=== PATIENT | female | born 1955 | race Asian ===

== ENCOUNTER → 2016-03-14 | Outpatient (CLI) | payer BC ==
[~2016-03-14] MED LIST: LEVO150T10; LISI-287; METO50TA7
[2016-03-14 08:05] LABS: Potassium 3.9 mmol/L (3.5-5.1)
== END | disposition home or self-care (01) ==
LOC: LAB 06:36
PROVIDERS: ATTEND Internal Medicine
DX: I10 Essential (primary) hypertension (principal); E78.00 Pure hypercholesterolemia, unspecified
CPT/HCPCS: 36415; 80061; 84132; 84439; 84443; 84450; 84460

== ENCOUNTER 2016-10-20 10:00 | Day surgery (SDC) | payer BC ==
[2016-10-16 11:36] LABS: Basophils # (auto) 0 uL; Basophils % (auto) 0.6 % (0.0-2.0); CONDITION Y; Eosinophils # (auto) 0.1 uL; Eosinophils % (auto) 2.2 % (0.0-7.0); Hematocrit 46.3 % (36.0-46.0); Hemoglobin 15.8 g/dL (12.2-16.2); Lymphocytes # (auto) 1.7 uL; Lymphocytes % (auto) 34.6 % (10.0-50.0); Mean Corpuscular Hemoglobin 31.1 pg (28.0-32.0); Mean Corpuscular Hgb Conc. 34.2 g/dL (32.0-36.0); Mean Corpuscular Volume 91.1 fL (80.0-100.0); Mean Platelet Volume 7.7 fL (7.4-10.4); Monocytes # (auto) 0.3 uL; Monocytes % (auto) 5.4 % (0.0-12.0); Neutrophils # (auto) 2.7 uL; Neutrophils % (auto) 57.2 % (37.0-80.0); Platelet Count (auto) 274 10^3/uL (140-450); Red Cell Distribution Width 12.1 % (11.6-16.0); White Blood Cell 4.8 10^3/uL (4.4-10.8)
[2016-10-16 11:59] LABS: INR 0.95 (0.9-1.15); Partial Thromboplastin Time 24.7 sec (22.64-33.71); Prothrombin Time 10.3 sec (9.37-12.3)
[~2016-10-20] VITALS: Ht 157.5 cm; Wt 67.1 kg
[~2016-10-20 10:00] MED LIST changes: +CALC600T57 PO; -LEVO150T10; +LEVO175T31 PO; -LISI-287; -METO50TA7; +METO50TA7 OR; +MULT-195 OR; +VALS1TAB54 PO
[2016-10-20] MEDS ORDERED: SODIUM CHLORIDE LOCK 10 ML ONE (10:26)
[2016-10-20] MEDS ORDERED: diphenhdrAMINE HCL 50 MG/1 ML VL ONE (10:26)
[2016-10-20] MEDS: fentaNYL CITRATE 100 MCG/2 ML VL ONE ×2 (11:29→11:33)
[2016-10-20] MEDS: MIDAZOLAM HCL 5 MG/ML-1ML VIAL ONE ×2 (11:29→11:33)
[2016-10-20 12:34] VITALS: BP 143/95
== END 2016-10-20 12:34 | disposition home or self-care (01) ==
LOC: GI 10:00
PROVIDERS: ATTEND Internal Medicine Gastroenterology
DX: Z12.11 Encounter for screening for malignant neoplasm of colon (principal)
CPT/HCPCS: 36415; 45378; 85025; 85610; 85730; J1200; J2250; J3010; J7030

== ENCOUNTER → 2016-11-04 | Outpatient (CLI) | payer BC ==
[2016-11-04 12:00] LABS: Basophils # (auto) 0 uL; Basophils % (auto) 0.8 % (0.0-2.0); Eosinophils # (auto) 0.1 uL; Eosinophils % (auto) 1.9 % (0.0-7.0); Hematocrit 48.6 % (36.0-46.0); Hemoglobin 16.4 g/dL (12.2-16.2); Lymphocytes # (auto) 1.8 uL; Lymphocytes % (auto) 35.3 % (10.0-50.0); Mean Corpuscular Hemoglobin 30.8 pg (28.0-32.0); Mean Corpuscular Hgb Conc. 33.8 g/dL (32.0-36.0); Mean Corpuscular Volume 91.2 fL (80.0-100.0); Monocytes # (auto) 0.4 uL; Monocytes % (auto) 8.1 % (0.0-12.0); Neutrophils # (auto) 2.7 uL; Neutrophils % (auto) 53.9 % (37.0-80.0); Nucleated Red Blood Cells % 0.1 %; Platelet Count (auto) 284 10^3/uL (140-450); Red Cell Distribution Width 12.8 % (11.6-16.0)
[2016-11-04 12:05] LABS: Urine Bilirubin Negative (Negative); Urine Blood Negative /uL (Negative); Urine Color Yellow (Yellow); Urine Glucose Normal (Normal); Urine Ketone Negative (Negative); Urine Mucus FEW (None Seen); Urine Nitrite Negative (Negative); Urine RBC <1 /hpf (0 - 4); Urine Squamous Epithelial Cell FEW /hpf (<5); Urine Urobilinogen Normal (Negative); Urine pH 5.5 (5.0-8.0)
[2016-11-04 12:18] LABS: Albumin 3.9 g/dL (3.4-5.0); BUN/Creatinine Ratio 15.9; Bilirubin, Total 0.6 mg/dL (0.2-1.0); Calcium 9.4 mg/dL (8.5-10.1); Potassium 3.9 mmol/L (3.5-5.1); Total Protein 8.1 g/dL (6.4-8.2)
== END | disposition home or self-care (01) ==
LOC: LAB 11:50
PROVIDERS: ATTEND Internal Medicine
DX: I10 Essential (primary) hypertension (principal); E78.00 Pure hypercholesterolemia, unspecified
CPT/HCPCS: 36415; 80053; 80061; 81001; 82043; 84439; 84443; 85025; 85652

== ENCOUNTER → 2016-12-02 | Outpatient (CLI) | payer BC ==
[2016-12-02 12:05] LABS: Aspartate Aminotransferase 57 U/L (15-37)
== END | disposition home or self-care (01) ==
LOC: LAB 10:54
PROVIDERS: ATTEND Internal Medicine
DX: K76.0 Fatty (change of) liver, not elsewhere classified (principal); H21.81 Floppy iris syndrome; Z79.899 Other long term (current) drug therapy
CPT/HCPCS: 36415; 83036; 84450; 84460

== ENCOUNTER → 2017-05-05 | Outpatient (CLI) | payer BC ==
[~2017-05-05] MED LIST changes: -VALS1TAB54 PO; +VALS1TAB58 PO
[2017-05-05 08:33] LABS: Alanine Aminotransferase 76 U/L (13-56); LDL Cholesterol 154 mg/dL (< 100)
[2017-05-05 10:22] LABS: INR 0.94 (0.9-1.15); Partial Thromboplastin Time 25.9 sec (22.64-33.71); Prothrombin Time 10.2 sec (9.37-12.3)
== END | disposition home or self-care (01) ==
LOC: LAB 07:02
PROVIDERS: ATTEND Internal Medicine
DX: I10 Essential (primary) hypertension (principal); R73.03 Prediabetes; K76.0 Fatty (change of) liver, not elsewhere classified
CPT/HCPCS: 36415; 83036; 83721; 84439; 84443; 84460; 85610; 85730

== ENCOUNTER → 2017-12-02 | Outpatient (CLI) | payer BC ==
[~2017-12-02] MED LIST changes: +MET5XLT OR; -METO50TA7 OR
[2017-12-02 10:55] LABS: Urine Bacteria NONE SEEN /hpf (None Seen); Urine Blood TRACE /uL (Negative); Urine Mucus FEW (None Seen); Urine Specific Gravity 1.019 (1.001-1.035); Urine WBC 1 /hpf (0 - 5)
[2017-12-02 11:00] LABS: Basophils # (auto) 0.1 uL; Eosinophils # (auto) 0.1 uL; Eosinophils % (auto) 2.1 % (0.0-7.0); Hemoglobin 16.2 g/dL (12.2-16.2); Lymphocytes # (auto) 2.1 uL; Lymphocytes % (auto) 41.9 % (10.0-50.0); Mean Corpuscular Hemoglobin 30.1 pg (28.0-32.0); Mean Corpuscular Hgb Conc. 33.1 g/dL (32.0-36.0); Monocytes # (auto) 0.4 uL; Monocytes % (auto) 7.4 % (0.0-12.0); Neutrophils # (auto) 2.4 uL; Neutrophils % (auto) 47.6 % (37.0-80.0); Nucleated Red Blood Cells % 0.1 %; Platelet Count (auto) 284 10^3/uL (140-450); Red Blood Cells 5.39 10^6/uL (4.0-5.20); Red Cell Distribution Width 12.9 % (11.8-14.3)
[2017-12-02 11:26] LABS: Albumin 3.8 g/dL (3.4-5.0); BUN/Creatinine Ratio 20.3; Bilirubin, Total 0.6 mg/dL (0.2-1.0); CRP High Sensitivity 0.63 mg/dL (< 0.3); Calcium 8.9 mg/dL (8.5-10.1); Potassium 4.1 mmol/L (3.5-5.1)
== END | disposition home or self-care (01) ==
LOC: LAB 10:25
PROVIDERS: ATTEND Internal Medicine
DX: E11.9 Type 2 diabetes mellitus without complications (principal); K76.0 Fatty (change of) liver, not elsewhere classified; H66.90 Otitis media, unspecified, unspecified ear; I10 Essential (primary) hypertension; E03.9 Hypothyroidism, unspecified
CPT/HCPCS: 36415; 80053; 80061; 81001; 82043; 83036; 84439; 84443; 85025; 85652; 86141

== ENCOUNTER → 2018-06-03 | Outpatient (CLI) | payer BC ==
[2018-06-03 12:13] LABS: Alanine Aminotransferase 58 U/L (13-56); Aspartate Aminotransferase 34 U/L (15-37); Cholesterol 216 mg/dL (< 200); HDL Cholesterol 45 mg/dL (40-59); LDL Cholesterol 151 mg/dL (< 100); Triglycerides 306 mg/dL (< 150)
== END | disposition home or self-care (01) ==
LOC: LAB 10:08
PROVIDERS: ATTEND Internal Medicine
DX: K76.0 Fatty (change of) liver, not elsewhere classified (principal); E11.9 Type 2 diabetes mellitus without complications; E78.5 Hyperlipidemia, unspecified
CPT/HCPCS: 36415; 80061; 83036; 84439; 84443; 84450; 84460

== ENCOUNTER → 2018-12-03 | Outpatient (CLI) | payer BC ==
[~2018-12-03] MED LIST changes: -MET5XLT OR; +METO-6 OR
[2018-12-03 09:39] LABS: Urine WBC None Seen /hpf (0 - 5)
[2018-12-03 09:45] LABS: Basophils # (auto) 0.1 uL; Basophils % (auto) 1.2 % (0.0-2.0); Eosinophils # (auto) 0.2 uL; Hematocrit 47.5 % (36.0-46.0); Hemoglobin 16.3 g/dL (12.2-16.2); Lymphocytes # (auto) 1.9 uL; Mean Corpuscular Hemoglobin 31.4 pg (28.0-32.0); Mean Corpuscular Hgb Conc. 34.4 g/dL (32.0-36.0); Mean Corpuscular Volume 91.2 fL (80.0-100.0); Monocytes # (auto) 0.4 uL; Monocytes % (auto) 6.6 % (0.0-12.0); Neutrophils # (auto) 3.1 uL; Neutrophils % (auto) 55.2 % (37.0-80.0); Platelet Count (auto) 307 10^3/uL (140-450); White Blood Cell 5.7 10^3/uL (4.4-10.8)
[2018-12-03 09:50] LABS: Urine Bacteria NONE SEEN /hpf (None Seen); Urine Blood TRACE /uL (Negative); Urine Specific Gravity 1.021 (1.001-1.035)
[2018-12-03 10:08] LABS: Albumin 3.8 g/dL (3.4-5.0); Potassium 4.3 mmol/L (3.5-5.1)
[2018-12-03 10:15] LABS: BUN/Creatinine Ratio 20.3; Bilirubin, Total 0.5 mg/dL (0.2-1.0)
== END | disposition home or self-care (01) ==
LOC: LAB 09:21
PROVIDERS: ATTEND Internal Medicine
DX: E78.00 Pure hypercholesterolemia, unspecified (principal); E03.9 Hypothyroidism, unspecified; I10 Essential (primary) hypertension
CPT/HCPCS: 36415; 80053; 80061; 81001; 82043; 84439; 84443; 85025; 85652

== ENCOUNTER → 2019-01-26 | Outpatient (CLI) | payer BC ==
[2019-01-26 10:13] LABS: Alanine Aminotransferase 62 U/L (13-56); Aspartate Aminotransferase 32 U/L (15-37); Cholesterol 219 mg/dL (< 200); HDL Cholesterol 53 mg/dL (40-59); LDL Cholesterol 144 mg/dL (< 100); Triglycerides 183 mg/dL (< 150)
== END | disposition home or self-care (01) ==
LOC: LAB 09:31
PROVIDERS: ATTEND Internal Medicine
DX: E78.5 Hyperlipidemia, unspecified (principal)
CPT/HCPCS: 36415; 80061; 84450; 84460

== ENCOUNTER → 2019-10-20 | Outpatient (CLI) | payer BC ==
[2019-10-20 07:15] LABS: Basophils # (auto) 0 10 ^3/uL (0-0.2); Basophils % (auto) 0.8 % (0.0-2.0); Eosinophils # (auto) 0.2 10 ^3/uL (0-0.8); Eosinophils % (auto) 2.6 % (0.0-7.0); Hematocrit 46.2 % (36.0-46.0); Hemoglobin 15.4 g/dL (12.2-16.2); Lymphocytes # (auto) 2.3 10 ^3/uL (0.4-5.4); Lymphocytes % (auto) 37.5 % (10.0-50.0); Mean Corpuscular Hemoglobin 30.8 pg (28.0-32.0); Mean Corpuscular Hgb Conc. 33.2 g/dL (32.0-36.0); Mean Corpuscular Volume 92.6 fL (80.0-100.0); Monocytes # (auto) 0.4 10 ^3/uL (0-1.3); Monocytes % (auto) 6.7 % (0.0-12.0); Neutrophils # (auto) 3.3 10 ^3/uL (1.6-8.6); Neutrophils % (auto) 52.4 % (37.0-80.0); Nucleated Red Blood Cells % 0.1 %; Platelet Count (auto) 274 10^3/uL (140-450); Red Blood Cells 4.99 10^6/uL (4.0-5.20); Red Cell Distribution Width 13.5 % (11.8-14.3); White Blood Cell 6.2 10^3/uL (4.4-10.8)
[2019-10-20 07:21] LABS: Urine Bacteria NONE SEEN /hpf (None Seen); Urine Blood Negative /uL (Negative); Urine Hyaline Cast FEW /lpf (0 - 2); Urine Mucus FEW (None Seen); Urine Specific Gravity 1.021 (1.001-1.035); Urine WBC 1 /hpf (0 - 5)
[2019-10-20 07:33] LABS: Albumin 3.9 g/dL (3.4-5.0); Calcium 8.7 mg/dL (8.5-10.1); Potassium 3.9 mmol/L (3.5-5.1)
[2019-10-20 07:37] LABS: Bilirubin, Total 0.8 mg/dL (0.2-1.0); Total Protein 7.8 g/dL (6.4-8.2)
== END | disposition home or self-care (01) ==
LOC: LAB 06:59
PROVIDERS: ATTEND Internal Medicine
DX: I10 Essential (primary) hypertension (principal); E78.00 Pure hypercholesterolemia, unspecified; R73.03 Prediabetes; E03.9 Hypothyroidism, unspecified
CPT/HCPCS: 36415; 80053; 80061; 81001; 84439; 84443; 85025; 85652

== ENCOUNTER → 2019-12-31 | Outpatient (CLI) | payer BC ==
[2019-12-31 14:14] LABS: Albumin 3.8 g/dL (3.4-5.0); BUN/Creatinine Ratio 20.3; Bilirubin, Total 0.7 mg/dL (0.2-1.0); Calcium 9.3 mg/dL (8.5-10.1); Potassium 4.1 mmol/L (3.5-5.1); Total Protein 7.7 g/dL (6.4-8.2)
== END | disposition home or self-care (01) ==
LOC: LAB 09:35
PROVIDERS: ATTEND Internal Medicine
DX: E11.9 Type 2 diabetes mellitus without complications (principal); E78.5 Hyperlipidemia, unspecified
CPT/HCPCS: 36415; 80053; 80061; 83036; 84439; 84443

== ENCOUNTER → 2020-01-11 | Outpatient (CLI) | payer OTHER | END | disposition home or self-care (01) | LOC: LAB 12:35 | PROVIDERS: ATTEND Nurse Practitioner Family | DX: U07.1 COVID-19 (principal) | CPT/HCPCS: C9803; U0003 ==

== ENCOUNTER 2020-01-25 13:11 | Inpatient (IN) | payer BC, OTHER ==
[~2020-01-25] VITALS: Ht 157.5 cm; Wt 71.2 kg
[2020-01-25] MEDS ORDERED: REMDESIVIR PER PHARMACY IV SCH (14:00)
[2020-01-25] MEDS ORDERED: methylPREDNISolone SOD SUCC 125 MG/2 ML VL IV ONE (14:00)
[2020-01-25] MEDS ORDERED: AZITHROMYCIN 500MG/ 250ML 250 ML IV ONE (14:00)
[2020-01-25] MEDS ORDERED: ASCORBIC ACID 500 MG TAB PO ONE (14:00)
[2020-01-25] MEDS ORDERED: ZINC SULFATE 220mg CAP or TAB PO ONE (14:00)
[2020-01-25 15:18] LABS: Alanine Aminotransferase 74 U/L (13-56); Anion Gap 7 (5-15); Blood Urea Nitrogen 12 mg/dL (7-18); CRP High Sensitivity 0.47 mg/dL (< 0.3); Calcium 9.2 mg/dL (8.5-10.1); Carbon Dioxide 28 mmol/L (21-32); Chloride 102 mmol/L (98-107); Glucose 148 mg/dL (74-106); Potassium 4.3 mmol/L (3.5-5.1); Sodium 137 mmol/L (136-145)
[2020-01-25 15:19] LABS: Lactic Acid w/Reflex 2.3 mmol/L (0.4-2.0)
[2020-01-25 15:25] LABS: Alkaline Phosphatase 88 U/L (45-117); Aspartate Aminotransferase 42 U/L (15-37); BUN/Creatinine Ratio 14.3; Bilirubin, Total 0.4 mg/dL (0.2-1.0); GFR African American 88 mL/min; GFR Non-African American 73 mL/min; Total Protein 7.8 g/dL (6.4-8.2)
[2020-01-25 15:30] LABS: Hematocrit 46.7 % (36.0-46.0); Hemoglobin 15.9 g/dL (12.2-16.2); White Blood Cell 5.8 10^3/uL (4.4-10.8)
[2020-01-25 15:32] LABS: Mean Corpuscular Hgb Conc. 34.1 g/dL (32.0-36.0); Mean Corpuscular Volume 90.8 fL (80.0-100.0); Platelet Count (auto) 503 10^3/uL (140-450); Red Blood Cells 5.14 10^6/uL (4.0-5.20); Red Cell Distribution Width 12.8 % (11.8-14.3)
[2020-01-25 15:41] LABS: Basophils % (manual) 0 (0.0-2.0); Blast Cells 0; Eosinophils % (manual) 0 (0-7); Metamyelocytes % 0; Myelocytes % 0; Promyelocytes % 0; Reactive Lymphocytes 0
[2020-01-25 16:31] LABS: Band Neutrophils % (manual) 1; Lymphocytes % (manual) 28 (10.0-50.0); Monocytes % (manual) 9 (0-12)
[2020-01-25] MEDS ORDERED: HYDROcodone-ACET 5/325MG TAB PO PRN (18:00)
[2020-01-25] MEDS ORDERED: ONDANSETRON HCL 4 MG/2 ML VIAL IV PRN (18:00)
[2020-01-25] MEDS ORDERED: ACETAMINOPHEN 500 MG TAB PO PRN (18:00)
[2020-01-25] MEDS ORDERED: MORPHINE SULF INJ 2 MG/ML SYRINGE 1ML IV PRN ×2 (18:00)
[2020-01-25] MEDS ORDERED: NITROGLYCERIN 0.4 MG SL TAB SL PRN (18:00)
[2020-01-25 22:00] VITALS: BP 121/79
[2020-01-25] MEDS ORDERED: BUDESONIDE (INHALATION) 180 MCG IH IN SCH (22:00)
[2020-01-25] MEDS ORDERED: ALBUTEROL SULF HFA 90MCG INH 200DOSE IN SCH (22:00)
[2020-01-25] MEDS: ENOXAPARIN SOD 40 MG/0.4 ML SYRINGE SC SCH (23:26)
[2020-01-25] MEDS: cefTRIAXone 1GM/50ML D5W 50 ML IV SCH (23:27)
[2020-01-26] VITALS (10 sets, daily range): BP systolic 111–141; BP diastolic 71–87
--- NOTE | 2020-01-26 | NUR ---
Telemetry admit from ER MARINA ISLAS admitted to Telemetry unit after SBAR received. Patient oriented to Jennifer Maravilla RN primary RN, unit, room, bed, and unit policies regarding patient care and visiting hours. Patient now on continuous telemetry monitoring, tele box # [id number] and telemetry reading on arrival to unit is SR. Patient placed on bedside oxygen at 2 Lpm/NC, weighed by bedscale and encouraged to call if they need something. All questions and concerns addressed, patient verbalized understanding, will continue to monitor Note: []
[2020-01-26] MEDS ORDERED: LOSA-39 PO (01:06)
[2020-01-26] MEDS ORDERED: ASCO500T11 PO (01:06)
[2020-01-26] MEDS ORDERED: ROSU20TA14 PO (01:06)
[2020-01-26] MEDS ORDERED: ASPI-543 PO (01:06)
--- NOTE | 2020-01-26 02:00 | NUR ---
Covid swab done and sent to lab
[2020-01-26 06:46] LABS: Basophils # (auto) 0 10 ^3/uL (0-0.2); Eosinophils # (auto) 0 10 ^3/uL (0-0.8)
[2020-01-26 06:56] LABS: Hematocrit 44.5 % (36.0-46.0); Hemoglobin 14.8 g/dL (12.2-16.2); Mean Corpuscular Hemoglobin 30.4 pg (28.0-32.0); Mean Corpuscular Hgb Conc. 33.2 g/dL (32.0-36.0); Mean Corpuscular Volume 91.6 fL (80.0-100.0); Platelet Count (auto) 474 10^3/uL (140-450); Red Blood Cells 4.86 10^6/uL (4.0-5.20); White Blood Cell 5.7 10^3/uL (4.4-10.8)
[2020-01-26 07:04] LABS: Basophils % (auto) 0.1 % (0.0-2.0); Lymphocytes # (auto) 1.1 10 ^3/uL (0.4-5.4); Lymphocytes % (auto) 19.3 % (10.0-50.0); Monocytes # (auto) 0.1 10 ^3/uL (0-1.3); Monocytes % (auto) 1.2 % (0.0-12.0); Neutrophils # (auto) 4.5 10 ^3/uL (1.6-8.6); Neutrophils % (auto) 79.4 % (37.0-80.0); Potassium 4.5 mmol/L (3.5-5.1)
[2020-01-26 07:11] LABS: BUN/Creatinine Ratio 16.3; Bilirubin, Total 0.3 mg/dL (0.2-1.0); Calcium 9.1 mg/dL (8.5-10.1); Total Protein 7.8 g/dL (6.4-8.2)
--- NOTE | 2020-01-26 08:00 | NUR ---
Opening Shift Note Assumed care of patient, awake and alert. With some S/S of distress/SOB but no complaints of pain. On O2 at 2lpm/nasal cannula continuously administered. Instructed on POC and to call for assist PRN, will continue to monitor for changes Q1hr and PRN.
[2020-01-26] MEDS: cefTRIAXone 1GM/50ML D5W 50 ML IV SCH (08:54)
[2020-01-26] MEDS: ENOXAPARIN SOD 40 MG/0.4 ML SYRINGE SC SCH ×2 (09:48→22:15)
[2020-01-26] MEDS: DexAMETHasone SOD PHOS 10MG/1ML VIAL INJ IV SCH (09:48)
[2020-01-26] MEDS: FAMOTIDINE 20 MG TAB PO SCH (09:48)
[2020-01-26] MEDS: ZINC SULFATE 220mg CAP or TAB PO SCH (09:49)
[2020-01-26] MEDS: AZITHROMYCIN 500MG/D5WorNS 250ml IV SCH (09:49)
[2020-01-26] MEDS ORDERED: REMDESIVIR 200 MG in NS 210ml LOADING DOSE ADULT IV ONE (17:00)
[2020-01-26] MEDS ORDERED: FUROSEMIDE 20 MG/2 ML VIAL IV ONE (18:45)
--- NOTE | 2020-01-26 19:35 | NUR ---
Opening Shift Note Assumed care of patient, awake and alert. With some S/S of distress/SOB with ambulation. On O2 at 2lpm/nasal cannula continuously administered. Updated on POC and to call for assist PRN. NPO after MN instructed, for CTA of the chest tomorrow, patient verbalized understanding. Full linen changed, bed in lowest and locked position, call light within reach, will continue to monitor for changes Q1hr and PRN.
[2020-01-27 05:00] VITALS: BP 126/79
[2020-01-27 05:53] LABS: Calcium 9.1 mg/dL (8.5-10.1); Potassium 3.9 mmol/L (3.5-5.1)
[2020-01-27 05:55] LABS: BUN/Creatinine Ratio 22.9; Lactic Acid w/Reflex 2.3 mmol/L (0.4-2.0)
[2020-01-27 08:49] VITALS: BP 114/76
[2020-01-27] MEDS: cefTRIAXone 1GM/50ML D5W 50 ML IV SCH (08:54)
[2020-01-27] MEDS: AZITHROMYCIN 500MG/D5WorNS 250ml IV SCH (09:03)
[2020-01-27] MEDS: ENOXAPARIN SOD 40 MG/0.4 ML SYRINGE SC SCH ×2 (09:04→21:28)
[2020-01-27] MEDS: DexAMETHasone SOD PHOS 10MG/1ML VIAL INJ IV SCH (09:04)
[2020-01-27] MEDS: FUROSEMIDE 20 MG/2 ML VIAL IV SCH (09:05)
[2020-01-27] MEDS: FAMOTIDINE 20 MG TAB PO SCH (10:00)
[2020-01-27] MEDS: ZINC SULFATE 220mg CAP or TAB PO SCH (10:00)
--- NOTE | 2020-01-27 10:34 | NUR ---
ROUNDING MD SEAY AT BEDSIDE. ALL QUESTIONS AND CONCERNS ADDRESSED AT THIS TIME
[2020-01-27] MEDS ORDERED: POTASSIUM EFFERVESENT TAB 25 MEQ PO ONE (12:15)
[2020-01-27] MEDS ORDERED: IOHEXOL 350 MG/ML 100ML IJ ONE (12:50)
[2020-01-27 12:55] VITALS: BP 114/92
[2020-01-27 16:38] VITALS: BP 108/71
[2020-01-27] MEDS: REMDESIVIR 100 MG in SODIUM CHL 0.9% 250 ML IV SCH (17:24)
--- NOTE | 2020-01-27 18:46 | NUR ---
REMDESIVIR ADMINISTRATION PRE VITALS: BP 109/68 HR 81 15 MINUTE: BP 112/71 HR 80 POST VITALS: BP 108/58 HR 90
--- NOTE | 2020-01-27 21:33 | NUR ---
Respiratory note: PT CURRENTLY ON NC1L. PT AWAKE AND ALERT. NO RESP DISTRESS NOTED. SPO2 95%, HR 77, RR 18.
[2020-01-27 22:00] VITALS: BP 100/77
[2020-01-28 05:00] VITALS: BP 145/78
--- NOTE | 2020-01-28 06:19 | NUR ---
PATIENT SITTING UP AT BEDSIDE EATING BREAKFAST. NO S/S OF DISTRESS NOTED. PATIENT CURRENTLY ON 02 VIA MT. NO COMPLAINTS OF SOB.
[2020-01-28 08:00] VITALS: BP 114/76
--- NOTE | 2020-01-28 08:00 | NUR ---
ASSESSMENT NOTE PT IS SITTING AT THE SIDE OF THE BED, 1 L NC OXYGEN SAT AT 97 %, ABLE TO SELF REPOSITION AND VERBALIS HER NEEDS, PT HAS A BUBBLY PERSONALITY, ABLE TO SELF REPOSITION, AMBULATE NEEDED, PAIN 0/10, CALL LIGHT WITHIN REACH
[2020-01-28 08:30] VITALS: BP 122/83
[2020-01-28] MEDS: cefTRIAXone 1GM/50ML D5W 50 ML IV SCH (09:30)
[2020-01-28] MEDS: FAMOTIDINE 20 MG TAB PO SCH (09:30)
[2020-01-28] MEDS: DexAMETHasone SOD PHOS 10MG/1ML VIAL INJ IV SCH (09:30)
[2020-01-28] MEDS: ZINC SULFATE 220mg CAP or TAB PO SCH (09:30)
[2020-01-28] MEDS: POTASSIUM EFFERVESENT TAB 25 MEQ PO SCH (09:30)
[2020-01-28] MEDS: AZITHROMYCIN 250 MG TAB PO SCH (09:31)
[2020-01-28] MEDS: FUROSEMIDE 20 MG/2 ML VIAL IV SCH (09:31)
[2020-01-28] MEDS: ENOXAPARIN SOD 40 MG/0.4 ML SYRINGE SC SCH ×2 (09:31→20:34)
[2020-01-28] MEDS ORDERED: FUROSEMIDE 20 MG/2 ML VIAL IV ONE (11:15)
[2020-01-28] MEDS ORDERED: POTASSIUM CHL 20 Meq TABLET PO ONE (11:15)
--- NOTE | 2020-01-28 11:30 | NUR ---
DR RAO AT BED SIDE FOLLOWING UP ON PT, WITH NEW ORDERS
[2020-01-28 13:00] VITALS: BP 126/73
[2020-01-28] MEDS ORDERED: guaiFENesin-DM 100/10mg/5ml SYR PO PRN (14:45)
[2020-01-28 17:15] VITALS: BP_SYST 126; BP_DIAS 67; BP_DIAS 85
[2020-01-28] MEDS: REMDESIVIR 100 MG in SODIUM CHL 0.9% 250 ML IV SCH (17:30)
--- NOTE | 2020-01-28 17:30 | NUR ---
REMEDISIVIR IV INITIATED, PRE VS TAKEN, CONTINUE MONITORING
--- NOTE | 2020-01-28 18:30 | NUR ---
PT TOLERATED REMEDISIVIR WELL, NO DISTRESS NOTED, CONTINUE MONITORING
--- NOTE | 2020-01-28 19:30 | NUR ---
Opening Shift Note Assumed care of patient, awake and alert. No S/S of distress/SOB or pain. Insructed on POC and to callfor assist PRN, will continue to monitor for changes Q1hr and PRN. Fall and safety precautions in place. Call light within reach.
[2020-01-28 22:34] VITALS: BP 117/70
[2020-01-29 05:14] VITALS: BP 134/84
[2020-01-29 05:43] LABS: Albumin 3.2 g/dL (3.4-5.0); Calcium 9.1 mg/dL (8.5-10.1); Potassium 4.3 mmol/L (3.5-5.1)
[2020-01-29 05:48] LABS: BUN/Creatinine Ratio 32.9; Bilirubin, Total 0.2 mg/dL (0.2-1.0); Total Protein 7.6 g/dL (6.4-8.2)
[2020-01-29 08:00] VITALS: BP 126/73
--- NOTE | 2020-01-29 08:00 | NUR ---
ASSESSMENT NOTE PT IS SITTING AT THE SIDE OF THE BED, ROOM AIR SAT AT 95-97 %, ABLE TO SELF REPOSITION AND VERBALIS HER NEEDS, PT HAS A BUBBLY PERSONALITY, ABLE TO SELF REPOSITION, AMBULATE NEEDED, PAIN 0/10, CALL LIGHT WITHIN REACH
[2020-01-29 08:30] VITALS: BP 139/87
[2020-01-29] MEDS: cefTRIAXone 1GM/50ML D5W 50 ML IV SCH (10:02)
[2020-01-29] MEDS: DexAMETHasone SOD PHOS 10MG/1ML VIAL INJ IV SCH (10:02)
[2020-01-29] MEDS: ZINC SULFATE 220mg CAP or TAB PO SCH (10:03)
[2020-01-29] MEDS: AZITHROMYCIN 250 MG TAB PO SCH (10:03)
[2020-01-29] MEDS: FUROSEMIDE 40 MG/4 ML VIAL IV SCH (10:03)
[2020-01-29] MEDS: POTASSIUM EFFERVESENT TAB 25 MEQ PO SCH (10:03)
[2020-01-29] MEDS: FAMOTIDINE 20 MG TAB PO SCH (10:03)
[2020-01-29] MEDS: ENOXAPARIN SOD 40 MG/0.4 ML SYRINGE SC SCH ×2 (10:04→22:12)
--- NOTE | 2020-01-29 10:20 | NUR ---
DR RAO AT BED SIDE, FOLLOWING UP ON PT, PT IS ROOM AIR SAT AT 94%, DR ARO INFORM PT WITH DISCHARGE HOME PLANING FOR TOMORROW, PT VERBALIS UNDERSTANDING
--- NOTE | 2020-01-29 11:10 | NUR ---
Nutrition Assessment Note Please see attached link for complete assessment. Est energy needs BW 71 [id number] kcal (23-25 kcal/kg BW) Est protein needs 71-78 g (1.0-1.1g/kg BW) Will monitor and reassess prn Addendum: 01/29/20 at [address] Amended: Links added.
[2020-01-29 12:24] VITALS: BP 114/71
--- NOTE | 2020-01-29 15:30 | NUR ---
PT CONTINUE STABLE, NO DISTRESS NOTED, CONTINUE ON ROOM AIR
[2020-01-29 17:05] VITALS: BP 122/68
[2020-01-29] MEDS: REMDESIVIR 100 MG in SODIUM CHL 0.9% 250 ML IV SCH (18:02)
--- NOTE | 2020-01-29 18:02 | NUR ---
REMEDISIVIR IV INITIATED PRE SET OF VS TAKEN CONTINUE MONITORING
--- NOTE | 2020-01-29 18:38 | NUR ---
PATIENT CONTINUE TOLERATING REMEDISIVIR WELL, NO DISTRESS NOTED USE THE IS WALKING AROUND GOOD APPETITE COMPLYING ALL THE TREATMENT ON ROOM AIR NO DISTRESS NOTED
--- NOTE | 2020-01-29 19:02 | NUR ---
PT TOLERATED REMEDISIVIR WELL, NO DISTRESS NOTED, CONTINUE MONITORING
--- NOTE | 2020-01-29 19:30 | NUR ---
REMDESIVIR INFUSION ENDED AT THIS TIME REMDESIVIR INFUSION ENDED AT THIS TIME .PT TOLERATED WELL, NO NAUSEA/VOMIT/FEVER/CHILLS REPORTED. POST INFUSION VS:TEMP-98.1 ,HR-81, B/P-131/69, RR-18,O2 SAT -93%
[2020-01-29 23:19] VITALS: BP 142/69
[2020-01-30 05:12] VITALS: BP 134/80
--- NOTE | 2020-01-30 06:46 | NUR ---
END OF SHIFT NOTES WILL ENDORSE CARE TO DAY SHIFT RN ,NO S/S OF DISTRESS OR SOB
[2020-01-30 08:00] VITALS: BP 116/74
--- NOTE | 2020-01-30 08:00 | NUR ---
Received pt resting in bed, call light within reach, no pain or distress noted or reported at this time.
[2020-01-30] MEDS: cefTRIAXone 1GM/50ML D5W 50 ML IV SCH (09:11)
[2020-01-30] MEDS: FAMOTIDINE 20 MG TAB PO SCH (09:12)
[2020-01-30] MEDS: FUROSEMIDE 40 MG/4 ML VIAL IV SCH (09:12)
[2020-01-30] MEDS: ZINC SULFATE 220mg CAP or TAB PO SCH (09:12)
[2020-01-30] MEDS: DexAMETHasone SOD PHOS 10MG/1ML VIAL INJ IV SCH (09:12)
[2020-01-30] MEDS: AZITHROMYCIN 250 MG TAB PO SCH (09:13)
[2020-01-30] MEDS: POTASSIUM EFFERVESENT TAB 25 MEQ PO SCH (09:13)
[2020-01-30] MEDS ORDERED: PANT40TA2 PO (10:25)
[2020-01-30] MEDS ORDERED: ZINC220T6 PO (10:25)
[2020-01-30] MEDS ORDERED: DEXT1SYP9 PO (10:25)
[2020-01-30] MEDS ORDERED: DEX4T PO (10:25)
[2020-01-30] MEDS ORDERED: ALBUAER3 IN (10:25)
--- NOTE | 2020-01-30 10:45 | NUR ---
Dr. Daigle at bed side to see pt, doctor discussed the plan of care with pt.
[2020-01-30 12:30] VITALS: BP 123/70
[2020-01-30] MEDS: ENOXAPARIN SOD 40 MG/0.4 ML SYRINGE SC SCH ×2 (12:51→21:32)
[2020-01-30 13:13] VITALS: BP 116/74
--- NOTE | 2020-01-30 13:21 | NUR ---
[facility] pt's prescription was called in by Dr. Daigle, as per pharmacist pt's medications were garbage pick up worker already by pt's . Will inform pt.
[2020-01-30 16:37] VITALS: BP 105/70
[2020-01-30] MEDS: REMDESIVIR 100 MG in SODIUM CHL 0.9% 250 ML IV SCH (17:45)
--- NOTE | 2020-01-30 18:57 | NUR ---
Discharge instructions given as ordered. Encourage to follow up with PMD as instructed. All questions and concerns addressed. Patient verbalized understanding. Medication reconciliation form completed and copy given to patient. No home medications held in Pharmacy, and no needed vaccines to be given. Pt needs to have the last dose of Remdesivir prior discharge, pt will wait for family to pick her up. Pt currently on Remdesivir IV administration.
--- NOTE | 2020-01-30 19:18 | NUR ---
Remdesivir At 1750 started Remdesivir, v/s taken, BP 127/80, HR 91, at 1810 vs taken again, BP 132/88, HR 86, at 1915 Remdesivir finished, v/s taken 118/65, HR 92, pt tolerated medication treatment, will continue to monitor.
--- NOTE | 2020-01-30 19:30 | NUR ---
REMDESIVIR INFUSION ENDED AT THIS TIME REMDESIVIR INFUSION ENDED AT THIS TIME .PT TOLERATED WELL, NO NAUSEA/VOMIT/FEVER/CHILLS REPORTED. POST INFUSION VS:TEMP-98.2 ,HR-91, B/P-131/92, RR-20,O2 SAT -91%
[2020-01-30 22:00] VITALS: BP 131/92
--- NOTE | 2020-01-30 23:30 | NUR ---
Discharge instructions given as ordered. Encourage to follow up with PMD as instructed. All questions and concerns addressed. Patient verbalized understanding.IV removed with catheter intact, pressure dressing applied. . Patient taken to vehicle via wheelchair with all personal belongings, accompanied by staff. No distress noted at time of departure.
== END 2020-01-30 23:08 | disposition home or self-care (01) | DRG 871 ==
LOC: EEVIPCON 13:11 → ER 13:11 → TELE 17:59 → TELE-CENTR 22:15 → CENTRAL 01-29 13:33
PROVIDERS: ADMIT Nurse Practitioner Acute Care; ATTEND Internal Medicine
PROC: XW033E5 Introduction of Remdesivir Anti-infective into Peripheral Vein, Percutaneous Approach, New Technology Group 5 (ICD-10-PCS; principal; 2020-01-26)
DX: A41.89 Other specified sepsis (principal); J12.89 Other viral pneumonia; J96.01 Acute respiratory failure with hypoxia; U07.1 COVID-19; D68.59 Other primary thrombophilia; E44.1 Mild protein-calorie malnutrition; E03.9 Hypothyroidism, unspecified; E78.5 Hyperlipidemia, unspecified; I10 Essential (primary) hypertension; I70.0 Atherosclerosis of aorta; Z79.899 Other long term (current) drug therapy; R65.20 Severe sepsis without septic shock; R91.1 Solitary pulmonary nodule; R74.01 Elevation of levels of liver transaminase levels; R73.9 Hyperglycemia, unspecified
CPT/HCPCS: 36415; 71045; 71275; 80048; 80053; 82728; 83605; 83735; 84484; 85007; 85025; 85027; 85379; 86141; 87040; 87070; 87205; 87426; 87804; 93970; 94640; G0378; J0696; J1100

== ENCOUNTER → 2020-05-18 | Outpatient (CLI) | payer BC ==
[~2020-05-18] MED LIST changes: +ALBUAER3 IN; +ASCO500T11 PO; +ASPI-543 PO; +CALC1TAB92 PO; -CALC600T57 PO; +DEX4T PO; +DEXT1SYP9 PO; -LEVO175T31 PO; +LEVO175T66 PO; +LOSA-39 PO; +PANT40TA2 PO; +ROSU20TA14 PO; +ZINC220T6 PO
[2020-05-18 08:30] LABS: Alanine Aminotransferase 121 U/L (13-56); Aspartate Aminotransferase 54 U/L (15-37)
[2020-05-18 08:32] LABS: Cholesterol 244 mg/dL (< 200); HDL Cholesterol 63 mg/dL (40-59); LDL Cholesterol 167 mg/dL (< 100); Triglycerides 148 mg/dL (< 150)
== END | disposition home or self-care (01) ==
LOC: LAB 07:20
PROVIDERS: ATTEND Internal Medicine
DX: I10 Essential (primary) hypertension (principal); E78.5 Hyperlipidemia, unspecified; E03.9 Hypothyroidism, unspecified
CPT/HCPCS: 36415; 80061; 84439; 84443; 84450; 84460

== ENCOUNTER → 2020-06-15 | Outpatient (CLI) | payer BC ==
[2020-06-15 08:53] LABS: INR 1.02 (0.9-1.15)
[2020-06-15 10:59] LABS: Alanine Aminotransferase 106 U/L (13-56); Aspartate Aminotransferase 54 U/L (15-37); Cholesterol 237 mg/dL (< 200); Creatine Kinase IFCC 123 U/L (26-192); HDL Cholesterol 55 mg/dL (40-59); LDL Cholesterol 169 mg/dL (< 100); Triglycerides 192 mg/dL (< 150)
== END | disposition home or self-care (01) ==
LOC: LAB 08:19
PROVIDERS: ATTEND Internal Medicine
DX: K76.0 Fatty (change of) liver, not elsewhere classified (principal); E78.5 Hyperlipidemia, unspecified
CPT/HCPCS: 36415; 80061; 82550; 82977; 84450; 84460; 85610

== ENCOUNTER 2020-07-06 15:54 | Emergency (ER) | payer BC, OTHER ==
[~2020-07-06] VITALS: Ht 157.5 cm; Wt 71.7 kg
[2020-07-06 19:33] VITALS: BP 197/130
[2020-07-06] MEDS ORDERED: HYDROcodone-ACET 5/325MG TAB PO ONE (20:30)
== END 2020-07-06 21:33 | disposition home or self-care (01) ==
LOC: ER 15:54
DX: R51.9 Headache, unspecified (principal); M54.2 Cervicalgia; M79.602 Pain in left arm; M79.18 Myalgia, other site; I10 Essential (primary) hypertension; E78.00 Pure hypercholesterolemia, unspecified; E78.5 Hyperlipidemia, unspecified; Z79.82 Long term (current) use of aspirin; Z79.899 Other long term (current) drug therapy; V49.59XA Passenger injured in collision with other motor vehicles in traffic accident, initial encounter; Y93.89 Activity, other specified; Y92.488 Other paved roadways as the place of occurrence of the external cause; Y99.8 Other external cause status
CPT/HCPCS: 70450; 72125

== ENCOUNTER → 2020-09-29 | Outpatient (CLI) | payer BC ==
[2020-09-29 08:15] LABS: Urine WBC None Seen /hpf (0 - 5)
[2020-09-29 08:20] LABS: Basophils # (auto) 0 10 ^3/uL (0-0.2); Basophils % (auto) 0.7 % (0.0-2.0); Eosinophils # (auto) 0.1 10 ^3/uL (0-0.8); Eosinophils % (auto) 2.3 % (0.0-7.0); Hematocrit 46.6 % (36.0-46.0); Hemoglobin 15.8 g/dL (12.2-16.2); Lymphocytes # (auto) 2.3 10 ^3/uL (0.4-5.4); Lymphocytes % (auto) 42.5 % (10.0-50.0); Mean Corpuscular Hemoglobin 31.3 pg (28.0-32.0); Mean Corpuscular Hgb Conc. 33.8 g/dL (32.0-36.0); Mean Corpuscular Volume 92.4 fL (80.0-100.0); Monocytes # (auto) 0.4 10 ^3/uL (0-1.3); Monocytes % (auto) 7.4 % (0.0-12.0); Neutrophils # (auto) 2.5 10 ^3/uL (1.6-8.6); Neutrophils % (auto) 47.1 % (37.0-80.0); Red Blood Cells 5.04 10^6/uL (4.0-5.20); White Blood Cell 5.3 10^3/uL (4.4-10.8)
[2020-09-29 08:29] LABS: Urine Bacteria NONE SEEN /hpf (None Seen); Urine Blood Negative /uL (Negative); Urine Mucus FEW (None Seen); Urine Specific Gravity 1.028 (1.001-1.035)
[2020-09-29 08:38] LABS: Albumin 3.8 g/dL (3.4-5.0); BUN/Creatinine Ratio 23.8; Calcium 9.1 mg/dL (8.5-10.1)
[2020-09-29 08:42] LABS: Bilirubin, Total 0.8 mg/dL (0.2-1.0); Total Protein 7.5 g/dL (6.4-8.2)
== END | disposition home or self-care (01) ==
LOC: LAB 08:10
PROVIDERS: ATTEND Internal Medicine
DX: E11.9 Type 2 diabetes mellitus without complications (principal); I10 Essential (primary) hypertension; K76.0 Fatty (change of) liver, not elsewhere classified
CPT/HCPCS: 36415; 80053; 80061; 81001; 83036; 84439; 84443; 85025; 85652

== ENCOUNTER → 2021-02-25 | Outpatient (CLI) | payer BC ==
[2021-02-25 08:34] LABS: Alanine Aminotransferase 125 U/L (13-56); Aspartate Aminotransferase 66 U/L (15-37); Cholesterol 240 mg/dL (< 200); HDL Cholesterol 63 mg/dL (40-59); LDL Cholesterol 149 mg/dL (< 100); Triglycerides 126 mg/dL (< 150)
== END | disposition home or self-care (01) ==
LOC: LAB 06:41
PROVIDERS: ATTEND Internal Medicine
DX: E78.5 Hyperlipidemia, unspecified (principal); I10 Essential (primary) hypertension
CPT/HCPCS: 36415; 80061; 84439; 84443; 84450; 84460

== ENCOUNTER → 2021-05-30 | Outpatient (CLI) | payer BC ==
[2021-05-30 10:52] LABS: INR 1.02 (0.9-1.15)
[2021-05-30 11:57] LABS: Potassium 3.8 mmol/L (3.5-5.1)
== END | disposition home or self-care (01) ==
LOC: LAB 09:53
PROVIDERS: ATTEND Internal Medicine
DX: E78.5 Hyperlipidemia, unspecified (principal); K76.0 Fatty (change of) liver, not elsewhere classified; R73.01 Impaired fasting glucose; R79.89 Other specified abnormal findings of blood chemistry
CPT/HCPCS: 36415; 80061; 84132; 84450; 84460; 85610

== ENCOUNTER → 2021-10-29 | Outpatient (CLI) | payer BC ==
[2021-10-29 15:31] LABS: Basophils # (auto) 0.1 10 ^3/uL (0-0.2); Eosinophils # (auto) 0.1 10 ^3/uL (0-0.8); Eosinophils % (auto) 2.8 % (0.0-7.0); Hematocrit 48.5 % (36.0-46.0); Hemoglobin 15.4 g/dL (12.2-16.2); Lymphocytes # (auto) 2.1 10 ^3/uL (0.4-5.4); Lymphocytes % (auto) 40.4 % (10.0-50.0); Mean Corpuscular Hemoglobin 29.5 pg (28.0-32.0); Mean Corpuscular Hgb Conc. 31.9 g/dL (32.0-36.0); Mean Corpuscular Volume 92.6 fL (80.0-100.0); Monocytes # (auto) 0.4 10 ^3/uL (0-1.3); Monocytes % (auto) 7.8 % (0.0-12.0); Neutrophils # (auto) 2.5 10 ^3/uL (1.6-8.6); Nucleated Red Blood Cells % 0.1 %; Red Blood Cells 5.23 10^6/uL (4.0-5.20); Red Cell Distribution Width 13.4 % (11.8-14.3); White Blood Cell 5.3 10^3/uL (4.4-10.8)
[2021-10-29 15:32] LABS: Albumin 3.8 g/dL (3.4-5.0); Potassium 4.4 mmol/L (3.5-5.1)
[2021-10-29 15:39] LABS: BUN/Creatinine Ratio 20.5; Bilirubin, Total 0.4 mg/dL (0.2-1.0); Calcium 9.1 mg/dL (8.5-10.1)
[2021-10-29 15:52] LABS: Urine Bacteria NONE SEEN /hpf (None Seen); Urine Blood Negative /uL (Negative); Urine Specific Gravity 1.023 (1.001-1.035); Urine WBC 1 /hpf (0 - 5)
== END | disposition home or self-care (01) ==
LOC: LAB 15:11
PROVIDERS: ATTEND Internal Medicine
DX: I10 Essential (primary) hypertension (principal); R73.01 Impaired fasting glucose
CPT/HCPCS: 36415; 80053; 80061; 81001; 83036; 84439; 84443; 85025; 85652

== ENCOUNTER → 2022-01-24 | Outpatient (CLI) | payer BC, OTHER ==
[2022-01-24 12:29] LABS: Cholesterol 244 mg/dL (< 200); HDL Cholesterol 69 mg/dL (40-59); LDL Cholesterol 166 mg/dL (< 100); Triglycerides 121 mg/dL (< 150)
== END | disposition home or self-care (01) ==
LOC: LAB 11:21
PROVIDERS: ATTEND Internal Medicine
DX: E11.9 Type 2 diabetes mellitus without complications (principal); I10 Essential (primary) hypertension; E03.9 Hypothyroidism, unspecified
CPT/HCPCS: 36415; 80061; 83036; 84439; 84443

== ENCOUNTER → 2022-03-26 | Outpatient (CLI) | payer OTHER | END | disposition home or self-care (01) | LOC: Rad HDHVI 10:36 | PROVIDERS: ATTEND Internal Medicine Cardiovascular Disease | DX: I10 Essential (primary) hypertension (principal) | CPT/HCPCS: 93306 ==

== ENCOUNTER → 2022-04-02 | Outpatient (CLI) | payer OTHER ==
[~2022-04-02] VITALS: Ht 157.5 cm; Wt 69.9 kg
== END | disposition home or self-care (01) ==
LOC: Rad HDHVI 13:27
PROVIDERS: ATTEND Internal Medicine Cardiovascular Disease
DX: I10 Essential (primary) hypertension (principal); E78.5 Hyperlipidemia, unspecified; Z82.49 Family history of ischemic heart disease and other diseases of the circulatory system
CPT/HCPCS: 78452; 93017; 96374; A9500

== ENCOUNTER → 2022-08-07 | Outpatient (CLI) | payer OTHER ==
[~2022-08-07] MED LIST changes: +LEVO175T4 PO; -LEVO175T66 PO; -LOSA-39 PO; +LOSA100T58 PO
[2022-08-07 12:01] LABS: Basophils # (auto) 0 10 ^3/uL (0-0.2); Eosinophils # (auto) 0.1 10 ^3/uL (0-0.8); Hematocrit 48.9 % (36.0-46.0); Hemoglobin 16.4 g/dL (12.2-16.2); Lymphocytes # (auto) 2.4 10 ^3/uL (0.4-5.4); Lymphocytes % (auto) 46.2 % (10.0-50.0); Mean Corpuscular Hemoglobin 30.5 pg (28.0-32.0); Mean Corpuscular Hgb Conc. 33.6 g/dL (32.0-36.0); Mean Corpuscular Volume 90.8 fL (80.0-100.0); Monocytes # (auto) 0.5 10 ^3/uL (0-1.3); Monocytes % (auto) 8.9 % (0.0-12.0); Neutrophils # (auto) 2.1 10 ^3/uL (1.6-8.6); Neutrophils % (auto) 41.9 % (37.0-80.0); Nucleated Red Blood Cells % 0.3 %; Red Blood Cells 5.39 10^6/uL (4.0-5.20); Red Cell Distribution Width 13.3 % (11.8-14.3); White Blood Cell 5.1 10^3/uL (4.4-10.8)
[2022-08-07 12:31] LABS: Urine Bacteria NONE SEEN /hpf (None Seen); Urine Blood Negative /uL (Negative); Urine Specific Gravity 1.017 (1.001-1.035); Urine WBC <1 /hpf (0 - 5)
[2022-08-07 12:43] LABS: Albumin 3.8 g/dL (3.4-5.0); Potassium 4.4 mmol/L (3.5-5.1)
[2022-08-07 12:49] LABS: BUN/Creatinine Ratio 20.8 (10.0-20.0); Bilirubin, Total 0.8 mg/dL (0.2-1.0); Total Protein 7.7 g/dL (6.4-8.2)
[2022-08-07 12:51] LABS: Free T4 (Free Thyroxine) 1.84 ng/dL (0.89-1.76)
== END | disposition home or self-care (01) ==
LOC: LAB 11:41
PROVIDERS: ATTEND Internal Medicine
DX: E11.9 Type 2 diabetes mellitus without complications (principal); I10 Essential (primary) hypertension
CPT/HCPCS: 36415; 80053; 80061; 81001; 82607; 83036; 84439; 84443; 85025; 85652

== ENCOUNTER → 2022-09-22 | Outpatient (CLI) | payer OTHER ==
[2022-09-22 12:17] LABS: INR 1.05 (0.9-1.15)
[2022-09-22 12:44] LABS: Alanine Aminotransferase 177 U/L (13-56); Aspartate Aminotransferase 82 U/L (15-37)
[2022-09-22 12:58] LABS: Micro Albumin 6.22 mg/L (0-30.0)
== END | disposition home or self-care (01) ==
LOC: LAB 11:36
PROVIDERS: ATTEND Internal Medicine
DX: K76.0 Fatty (change of) liver, not elsewhere classified (principal); E03.9 Hypothyroidism, unspecified
CPT/HCPCS: 36415; 82043; 82570; 84439; 84443; 84450; 84460; 85610

== ENCOUNTER → 2022-10-24 | Outpatient (CLI) | payer OTHER ==
[2022-10-24 15:46] LABS: % Iron Saturation 43.4 % (15-50)
== END | disposition home or self-care (01) ==
LOC: LAB 14:56
PROVIDERS: ATTEND Internal Medicine
DX: R79.89 Other specified abnormal findings of blood chemistry (principal)
CPT/HCPCS: 82728; 83540; 83550

== ENCOUNTER → 2022-12-17 | Outpatient (CLI) | payer OTHER ==
[2022-12-17 10:23] LABS: Basophils # (auto) 0.1 10 ^3/uL (0-0.2); Basophils % (auto) 1.2 % (0.0-2.0); Eosinophils # (auto) 0.2 10 ^3/uL (0-0.8); Eosinophils % (auto) 3.5 % (0.0-7.0); Hematocrit 48.9 % (36.0-46.0); Hemoglobin 16.4 g/dL (12.2-16.2); Lymphocytes # (auto) 2.4 10 ^3/uL (0.4-5.4); Mean Corpuscular Hemoglobin 30.9 pg (28.0-32.0); Mean Corpuscular Hgb Conc. 33.6 g/dL (32.0-36.0); Mean Corpuscular Volume 91.8 fL (80.0-100.0); Monocytes # (auto) 0.4 10 ^3/uL (0-1.3); Monocytes % (auto) 7.2 % (0.0-12.0); Neutrophils # (auto) 1.9 10 ^3/uL (1.6-8.6); Neutrophils % (auto) 39.1 % (37.0-80.0); Nucleated Red Blood Cells % 0.2 %; Red Blood Cells 5.32 10^6/uL (4.0-5.20); Red Cell Distribution Width 12.7 % (11.8-14.3); White Blood Cell 4.9 10^3/uL (4.4-10.8)
[2022-12-17 10:38] LABS: INR 1.07 (0.9-1.15); Prothrombin Time 11.2 sec (9.3-11.8)
[2022-12-17 11:19] LABS: Alanine Aminotransferase 64 U/L (7-40); Albumin 4.3 g/dL (3.2-4.8); Alkaline Phosphatase 143 U/L (46-116); Anion Gap 7 (5-15); Aspartate Aminotransferase 36 U/L (13-40); BUN/Creatinine Ratio 12.5 (10.0-20.0); Blood Urea Nitrogen 8 mg/dL (9-23); Calcium 9.4 mg/dL (8.5-10.1); Carbon Dioxide 27 mmol/L (20-30); Chloride 105 mmol/L (98-107); Cholesterol 206 mg/dL (< 200); Glucose 130 mg/dL (74-106); LDL Cholesterol 136 mg/dL (< 100); Potassium 4.1 mmol/L (3.5-5.1); Sodium 139 mmol/L (136-145); Triglycerides 164 mg/dL (< 150)
[2022-12-17 11:20] LABS: Bilirubin, Total 0.8 mg/dL (0.2-1.0); HDL Cholesterol 55 mg/dL (40-59); Total Protein 7.2 g/dL (5.7-8.2)
== END | disposition home or self-care (01) ==
LOC: LAB 09:50
PROVIDERS: ATTEND Internal Medicine Gastroenterology
DX: K76.0 Fatty (change of) liver, not elsewhere classified (principal); R94.5 Abnormal results of liver function studies
CPT/HCPCS: 36415; 80053; 80061; 83036; 85025; 85610

== ENCOUNTER → 2023-04-09 | Outpatient (CLI) | payer OTHER ==
[2023-04-09 09:35] LABS: Basophils # (auto) 0.1 10 ^3/uL (0-0.2); Basophils % (auto) 1.1 % (0.0-2.0); Eosinophils # (auto) 0.2 10 ^3/uL (0-0.8); Hemoglobin 15.8 g/dL (12.2-16.2); Lymphocytes # (auto) 2.8 10 ^3/uL (0.4-5.4); Lymphocytes % (auto) 47.3 % (10.0-50.0); Mean Corpuscular Hemoglobin 30.2 pg (28.0-32.0); Mean Corpuscular Hgb Conc. 32.9 g/dL (32.0-36.0); Mean Corpuscular Volume 91.7 fL (80.0-100.0); Monocytes # (auto) 0.5 10 ^3/uL (0-1.3); Monocytes % (auto) 8.5 % (0.0-12.0); Neutrophils # (auto) 2.3 10 ^3/uL (1.6-8.6); Neutrophils % (auto) 39.1 % (37.0-80.0); Nucleated Red Blood Cells % 0.1 %; Red Blood Cells 5.24 10^6/uL (4.0-5.20); Red Cell Distribution Width 13.2 % (11.8-14.3)
[2023-04-09 10:30] LABS: Alanine Aminotransferase 204 U/L (7-40); Albumin 4.3 g/dL (3.2-4.8); Alkaline Phosphatase 159 U/L (46-116); Anion Gap 9 (5-15); Aspartate Aminotransferase 104 U/L (13-40); BUN/Creatinine Ratio 11.1 (10.0-20.0); Blood Urea Nitrogen 8 mg/dL (9-23); Calcium 9.4 mg/dL (8.5-10.1); Carbon Dioxide 25 mmol/L (20-30); Chloride 106 mmol/L (98-107); Cholesterol 207 mg/dL (< 200); Glucose 157 mg/dL (74-106); HDL Cholesterol 58 mg/dL (40-59); LDL Cholesterol 143 mg/dL (< 100); Sodium 140 mmol/L (136-145); Triglycerides 121 mg/dL (< 150)
[2023-04-09 10:31] LABS: Bilirubin, Total 0.8 mg/dL (0.2-1.0); Total Protein 7.2 g/dL (5.7-8.2)
[2023-04-09 10:34] LABS: % Iron Saturation 44.7 % (15-50)
== END | disposition home or self-care (01) ==
LOC: LAB 09:18
PROVIDERS: ATTEND Internal Medicine Gastroenterology
DX: E11.9 Type 2 diabetes mellitus without complications (principal); E03.9 Hypothyroidism, unspecified; R94.5 Abnormal results of liver function studies; K76.0 Fatty (change of) liver, not elsewhere classified
CPT/HCPCS: 36415; 80053; 80061; 83036; 83540; 83550; 84439; 84443; 85025

== ENCOUNTER → 2023-05-05 | Outpatient (CLI) | payer OTHER ==
[2023-05-05 10:55] LABS: Alanine Aminotransferase 71 U/L (7-40); Albumin 4.3 g/dL (3.2-4.8); Alkaline Phosphatase 153 U/L (46-116); Anion Gap 5 (5-15); Aspartate Aminotransferase 39 U/L (13-40); BUN/Creatinine Ratio 17.9 (10.0-20.0); Blood Urea Nitrogen 12 mg/dL (9-23); Calcium 9.4 mg/dL (8.5-10.1); Carbon Dioxide 28 mmol/L (20-30); Chloride 105 mmol/L (98-107); Glucose 140 mg/dL (74-106); Sodium 138 mmol/L (136-145)
[2023-05-05 10:56] LABS: Bilirubin, Total 0.4 mg/dL (0.2-1.0); Total Protein 7.2 g/dL (5.7-8.2)
== END | disposition home or self-care (01) ==
LOC: LAB 09:55
PROVIDERS: ATTEND Internal Medicine Gastroenterology
DX: R94.5 Abnormal results of liver function studies (principal)
CPT/HCPCS: 36415; 80053; 82728; 86038; 86803; 87340

== ENCOUNTER → 2023-07-14 | Outpatient (CLI) | payer OTHER ==
[~2023-07-14] MED LIST changes: +LOSA-535 PO; -LOSA100T58 PO
[2023-07-14 10:44] LABS: Basophils # (auto) 0 10 ^3/uL (0-0.2); Basophils % (auto) 0.8 % (0.0-2.0); Eosinophils # (auto) 0.1 10 ^3/uL (0-0.8); Eosinophils % (auto) 1.5 % (0.0-7.0); Hematocrit 48.7 % (36.0-46.0); Hemoglobin 16.3 g/dL (12.2-16.2); Lymphocytes # (auto) 2.2 10 ^3/uL (0.4-5.4); Lymphocytes % (auto) 47.4 % (10.0-50.0); Mean Corpuscular Hemoglobin 30.7 pg (28.0-32.0); Mean Corpuscular Hgb Conc. 33.5 g/dL (32.0-36.0); Mean Corpuscular Volume 91.4 fL (80.0-100.0); Monocytes # (auto) 0.3 10 ^3/uL (0-1.3); Monocytes % (auto) 6.7 % (0.0-12.0); Neutrophils # (auto) 2.1 10 ^3/uL (1.6-8.6); Neutrophils % (auto) 43.6 % (37.0-80.0); Nucleated Red Blood Cells % 0.4 %; Red Blood Cells 5.33 10^6/uL (4.0-5.20); White Blood Cell 4.7 10^3/uL (4.4-10.8)
[2023-07-14 11:22] LABS: Alanine Aminotransferase 51 U/L (7-40); Albumin 4.4 g/dL (3.2-4.8); Alkaline Phosphatase 137 U/L (46-116); Anion Gap 6 (5-15); Aspartate Aminotransferase 36 U/L (13-40); BUN/Creatinine Ratio 14.7 (10.0-20.0); Blood Urea Nitrogen 10 mg/dL (9-23); Calcium 9.7 mg/dL (8.5-10.1); Carbon Dioxide 26 mmol/L (20-30); Chloride 106 mmol/L (98-107); Cholesterol 229 mg/dL (< 200); Glucose 122 mg/dL (74-106); HDL Cholesterol 59 mg/dL (40-59); LDL Cholesterol 164 mg/dL (< 100); Potassium 4.1 mmol/L (3.5-5.1); Sodium 138 mmol/L (136-145); Triglycerides 113 mg/dL (< 150)
[2023-07-14 11:23] LABS: Bilirubin, Total 0.8 mg/dL (0.2-1.0); Total Protein 7.3 g/dL (5.7-8.2)
== END | disposition home or self-care (01) ==
LOC: LAB 10:12
PROVIDERS: ATTEND Internal Medicine Gastroenterology
DX: R94.5 Abnormal results of liver function studies (principal)
CPT/HCPCS: 36415; 80053; 80061; 83036; 85025

== ENCOUNTER → 2024-02-29 | Outpatient (CLI) | payer OTHER ==
[2024-02-29 11:07] LABS: Albumin 4.6 g/dL (3.2-4.8); Anion Gap 10 (5-15); BUN/Creatinine Ratio 13.6 (10.0-20.0); Bilirubin, Total 0.8 mg/dL (0.2-1.0); Blood Urea Nitrogen 11 mg/dL (9-23); Calcium 10.2 mg/dL (8.7-10.4); Carbon Dioxide 26 mmol/L (20-31); Chloride 104 mmol/L (98-107); Potassium 4.3 mmol/L (3.5-5.1); Sodium 140 mmol/L (136-145); Total Protein 7.7 g/dL (5.7-8.2)
[2024-02-29 11:17] LABS: Alanine Aminotransferase 75 U/L (7-40); Alkaline Phosphatase 149 U/L (46-116); Aspartate Aminotransferase 54 U/L (13-40); Cholesterol 252 mg/dL (< 200); Glucose 141 mg/dL (74-106); HDL Cholesterol 65 mg/dL (40-59); LDL Cholesterol 187 mg/dL (< 100); Triglycerides 160 mg/dL (< 150)
== END | disposition home or self-care (01) ==
LOC: LAB 10:14
PROVIDERS: ATTEND Internal Medicine
DX: K76.0 Fatty (change of) liver, not elsewhere classified (principal); E78.00 Pure hypercholesterolemia, unspecified
CPT/HCPCS: 36415; 80053; 80061; 83036; 84439; 84443

== ENCOUNTER → 2024-03-15 | Outpatient (CLI) | payer OTHER ==
[2024-03-15 11:11] LABS: Basophils # (auto) 0 10 ^3/uL (0-0.2); Basophils % (auto) 0.2 % (0.0-2.0); Eosinophils # (auto) 0.1 10 ^3/uL (0-0.8); Eosinophils % (auto) 2.1 % (0.0-7.0); Hematocrit 48.9 % (36.0-46.0); Hemoglobin 16.4 g/dL (12.2-16.2); Lymphocytes # (auto) 2.2 10 ^3/uL (0.4-5.4); Lymphocytes % (auto) 44.3 % (10.0-50.0); Mean Corpuscular Hgb Conc. 33.6 g/dL (32.0-36.0); Monocytes # (auto) 0.3 10 ^3/uL (0-1.3); Monocytes % (auto) 6.4 % (0.0-12.0); Neutrophils # (auto) 2.4 10 ^3/uL (1.6-8.6); Nucleated Red Blood Cells % 0.3 %; Platelet Count (auto) 248 10^3/uL (140-450); Red Blood Cells 5.31 10^6/uL (4.0-5.20); Red Cell Distribution Width 13.3 % (11.8-14.3); White Blood Cell 5.1 10^3/uL (4.4-10.8)
[2024-03-15 11:29] LABS: Albumin 4.7 g/dL (3.2-4.8); Anion Gap 9 (5-15); BUN/Creatinine Ratio 16.2 (10.0-20.0); Blood Urea Nitrogen 12 mg/dL (9-23); Carbon Dioxide 27 mmol/L (20-31); Chloride 105 mmol/L (98-107); Potassium 4.2 mmol/L (3.5-5.1); Sodium 141 mmol/L (136-145)
[2024-03-15 11:30] LABS: Alanine Aminotransferase 70 U/L (7-40); Alkaline Phosphatase 140 U/L (46-116); Aspartate Aminotransferase 42 U/L (13-40); Bilirubin, Total 0.8 mg/dL (0.2-1.0); Cholesterol 259 mg/dL (< 200); Glucose 146 mg/dL (74-106); HDL Cholesterol 62 mg/dL (40-59); LDL Cholesterol 191 mg/dL (< 100); Total Protein 7.5 g/dL (5.7-8.2); Triglycerides 159 mg/dL (< 150)
== END | disposition home or self-care (01) ==
LOC: LAB 08:43
PROVIDERS: ATTEND Internal Medicine
DX: E11.9 Type 2 diabetes mellitus without complications (principal); E78.00 Pure hypercholesterolemia, unspecified
CPT/HCPCS: 36415; 80053; 80061; 83036; 85025

== ENCOUNTER 2024-04-08 12:29 | Emergency (ER) | payer OTHER ==
[~2024-04-08] VITALS: Ht 162.6 cm; Wt 83.0 kg
[2024-04-08] MEDS: KETOROLAC TROMETH 30 MG/ML 1ML VIAL IM ONE (12:56)
[2024-04-08 13:04] VITALS: BP 160/76; PULSE 99; RESP 18; O2SAT 98
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
[2024-04-08] MEDS ORDERED: IBU600T PO (14:14)
[2024-04-08] MEDS ORDERED: CYCL-838 PO (14:14)
== END 2024-04-08 14:24 | disposition home or self-care (01) ==
LOC: EDBD 12:29 → ER 12:29
DX: S29.012A Strain of muscle and tendon of back wall of thorax, initial encounter (principal); S00.03XA Contusion of scalp, initial encounter; I10 Essential (primary) hypertension; E03.9 Hypothyroidism, unspecified; E78.5 Hyperlipidemia, unspecified; Z79.82 Long term (current) use of aspirin; Z79.899 Other long term (current) drug therapy; V89.2XXA Person injured in unspecified motor-vehicle accident, traffic, initial encounter; Y93.I9 Activity, other involving external motion; Y92.488 Other paved roadways as the place of occurrence of the external cause; Y99.8 Other external cause status
CPT/HCPCS: 70450; 72040; 96372; 99285; J1885

== ENCOUNTER → 2024-05-20 | Outpatient (CLI) | payer OTHER ==
[~2024-05-20] MED LIST changes: +CYCL-838 PO; +IBU600T PO
[2024-05-20 11:27] LABS: Basophils # (auto) 0 10 ^3/uL (0-0.2); Basophils % (auto) 0.7 % (0.0-2.0); Eosinophils # (auto) 0 10 ^3/uL (0-0.8); Eosinophils % (auto) 0.9 % (0.0-7.0); Hematocrit 49.6 % (36.0-46.0); Hemoglobin 16.9 g/dL (12.2-16.2); Lymphocytes # (auto) 1.9 10 ^3/uL (0.4-5.4); Lymphocytes % (auto) 36.5 % (10.0-50.0); Mean Corpuscular Hemoglobin 31.3 pg (28.0-32.0); Mean Corpuscular Volume 92.1 fL (80.0-100.0); Monocytes # (auto) 0.4 10 ^3/uL (0-1.3); Monocytes % (auto) 7.3 % (0.0-12.0); Neutrophils # (auto) 2.8 10 ^3/uL (1.6-8.6); Neutrophils % (auto) 54.6 % (37.0-80.0); Nucleated Red Blood Cells % 0.3 %; Platelet Count (auto) 255 10^3/uL (140-450); Red Blood Cells 5.39 10^6/uL (4.0-5.20); Red Cell Distribution Width 12.5 % (11.8-14.3); White Blood Cell 5.2 10^3/uL (4.4-10.8)
[2024-05-20 11:33] LABS: INR 1.04 (0.9-1.15)
[2024-05-20 11:47] LABS: Albumin 4.8 g/dL (3.2-4.8); Anion Gap 10 (5-15); Aspartate Aminotransferase 40 U/L (13-40); BUN/Creatinine Ratio 15.8 (10.0-20.0); Blood Urea Nitrogen 12 mg/dL (9-23); Calcium 10.1 mg/dL (8.7-10.4); Carbon Dioxide 27 mmol/L (20-31); Chloride 106 mmol/L (98-107); Potassium 4.2 mmol/L (3.5-5.1); Sodium 143 mmol/L (136-145); Total Protein 7.6 g/dL (5.7-8.2); Triglycerides 140 mg/dL (< 150)
[2024-05-20 11:48] LABS: Alanine Aminotransferase 57 U/L (7-40); Alkaline Phosphatase 138 U/L (46-116); Bilirubin, Total 0.9 mg/dL (0.2-1.0); Cholesterol 214 mg/dL (< 200); Glucose 134 mg/dL (74-106); HDL Cholesterol 57 mg/dL (40-59); LDL Cholesterol 143 mg/dL (< 100)
== END | disposition home or self-care (01) ==
LOC: LAB 10:38
PROVIDERS: ATTEND Internal Medicine Gastroenterology
DX: R94.5 Abnormal results of liver function studies (principal); Z79.899 Other long term (current) drug therapy
CPT/HCPCS: 36415; 80053; 80061; 82728; 83036; 85025; 85610

== ENCOUNTER → 2024-06-21 | Outpatient (CLI) | payer OTHER ==
[2024-06-21 08:39] LABS: Basophils # (auto) 0 10 ^3/uL (0-0.2); Basophils % (auto) 0.8 % (0.0-2.0); Eosinophils # (auto) 0.1 10 ^3/uL (0-0.8); Eosinophils % (auto) 1.4 % (0.0-7.0); Hematocrit 50.5 % (36.0-46.0); Lymphocytes # (auto) 1.7 10 ^3/uL (0.4-5.4); Lymphocytes % (auto) 36.8 % (10.0-50.0); Mean Corpuscular Hemoglobin 30.8 pg (28.0-32.0); Mean Corpuscular Hgb Conc. 33.7 g/dL (32.0-36.0); Mean Corpuscular Volume 91.4 fL (80.0-100.0); Monocytes # (auto) 0.3 10 ^3/uL (0-1.3); Monocytes % (auto) 5.9 % (0.0-12.0); Neutrophils # (auto) 2.5 10 ^3/uL (1.6-8.6); Neutrophils % (auto) 55.1 % (37.0-80.0); Nucleated Red Blood Cells % 0.3 %; Platelet Count (auto) 249 10^3/uL (140-450); Red Blood Cells 5.53 10^6/uL (4.0-5.20); Red Cell Distribution Width 12.9 % (11.8-14.3); White Blood Cell 4.6 10^3/uL (4.4-10.8)
[2024-06-21 08:52] LABS: INR 1.3 (0.9-1.15); Prothrombin Time 13.4 sec (9.3-11.8)
[2024-06-21 09:12] LABS: Albumin 4.7 g/dL (3.2-4.8); Anion Gap 11 (5-15); BUN/Creatinine Ratio 16.4 (10.0-20.0); Blood Urea Nitrogen 12 mg/dL (9-23); Calcium 10.1 mg/dL (8.7-10.4); Carbon Dioxide 26 mmol/L (20-31); Chloride 103 mmol/L (98-107); Potassium 4.1 mmol/L (3.5-5.1); Sodium 140 mmol/L (136-145)
[2024-06-21 09:13] LABS: Bilirubin, Total 0.9 mg/dL (0.2-1.0)
[2024-06-21 09:14] LABS: Total Protein 7.7 g/dL (5.7-8.2)
[2024-06-21 09:15] LABS: Alanine Aminotransferase 74 U/L (7-40); Alkaline Phosphatase 139 U/L (46-116); Aspartate Aminotransferase 49 U/L (13-40); Cholesterol 256 mg/dL (< 200); Glucose 146 mg/dL (74-106); HDL Cholesterol 61 mg/dL (40-59); LDL Cholesterol 185 mg/dL (< 100); Triglycerides 173 mg/dL (< 150)
== END | disposition home or self-care (01) ==
LOC: LAB 08:15
PROVIDERS: ATTEND Internal Medicine
DX: E11.9 Type 2 diabetes mellitus without complications (principal); E78.5 Hyperlipidemia, unspecified; K75.81 Nonalcoholic steatohepatitis (NASH)
CPT/HCPCS: 36415; 80053; 80061; 83036; 84443; 85025; 85610

== ENCOUNTER 2024-09-27 12:02 | Outpatient (CLI) | payer OTHER ==
[2024-09-27 13:33] LABS: Chloride 107 mmol/L (98-107); Potassium 3.9 mmol/L (3.5-5.1); Sodium 142 mmol/L (136-145)
[2024-09-27 13:34] LABS: Anion Gap 9 (5-15); Calcium 9.2 mg/dL (8.7-10.4); Carbon Dioxide 26 mmol/L (20-31)
[2024-09-27 13:39] LABS: BUN/Creatinine Ratio 21.9 (10.0-20.0); Blood Urea Nitrogen 16 mg/dL (9-23); Triglycerides 148 mg/dL (< 150)
[2024-09-27 13:41] LABS: HDL Cholesterol 53 mg/dL (40-59)
[2024-09-27 13:44] LABS: Glucose 134 mg/dL (74-106)
[2024-09-27 13:45] LABS: Cholesterol 234 mg/dL (< 200)
[2024-09-27 13:59] LABS: Microalb/Creat Ratio, Urine 4.0
== END 2024-09-27 17:00 | disposition home or self-care (01) ==
LOC: LAB 12:02
PROVIDERS: ATTEND Internal Medicine
DX: E78.00 Pure hypercholesterolemia, unspecified (principal); E11.9 Type 2 diabetes mellitus without complications
CPT/HCPCS: 36415; 80048; 80061; 82043; 82570; 83036

== ENCOUNTER 2024-12-30 08:55 | Outpatient (CLI) | payer OTHER ==
[2024-12-30 09:31] LABS: Hematocrit 48.3 % (36.0-46.0); Hemoglobin 16.3 g/dL (12.2-16.2); Mean Corpuscular Hemoglobin 30.7 pg (28.0-32.0); Mean Corpuscular Volume 91.2 fL (80.0-100.0); Nucleated Red Blood Cells % 0.2 %
[2024-12-30 09:37] LABS: INR 1.02 (0.9-1.15); Prothrombin Time 10.8 sec (9.3-11.8)
[2024-12-30 10:04] LABS: Albumin 4.4 g/dL (3.2-4.8); Anion Gap 11 (5-15); BUN/Creatinine Ratio 14.3 (10.0-20.0); Bilirubin, Total 0.8 mg/dL (0.2-1.0); Blood Urea Nitrogen 11 mg/dL (9-23); Calcium 9.1 mg/dL (8.7-10.4); Carbon Dioxide 27 mmol/L (20-31); Chloride 104 mmol/L (98-107); HDL Cholesterol 50 mg/dL (40-59); Potassium 4.1 mmol/L (3.5-5.1); Sodium 142 mmol/L (136-145); Total Protein 7.5 g/dL (5.7-8.2)
[2024-12-30 10:08] LABS: Alanine Aminotransferase 58 U/L (7-40); Alkaline Phosphatase 120 U/L (46-116); Cholesterol 244 mg/dL (< 200); Glucose 134 mg/dL (74-106); Triglycerides 284 mg/dL (< 150)
== END 2024-12-30 17:00 | disposition home or self-care (01) ==
LOC: LAB 08:55
PROVIDERS: ATTEND Internal Medicine Gastroenterology
DX: K75.81 Nonalcoholic steatohepatitis (NASH) (principal); Z79.899 Other long term (current) drug therapy
CPT/HCPCS: 36415; 80053; 80061; 83036; 85025; 85610